=== PATIENT | female | born 1990 | race Caucasian/White ===

== ENCOUNTER 2016-09-26 11:49 | Emergency (ER) | payer MEDICAID ==
[2016-09-26 11:54] VITALS: RESP 16; TEMP 97.5
--- NOTE | 2016-09-26 13:36 | EDPHY ---
H & P Stated Complaint: right lower arm pain x1 day, concerned for dvt has hx of same - Personal History LMP (Females 10-55): 8-14 Days Ago Current Tetanus/Diphtheria Vaccine: Unsure Current Tetanus Diphtheria and Acellular Pertussis (TDAP): Unsure - Medical/Surgical History Hx Asthma: No Hx Chronic Respiratory Disease: No Hx Diabetes: No Hx Cardiac Disease: No Hx Renal Disease: No Hx Cirrhosis: No Hx Alcoholism: No Hx HIV/AIDS: No Hx Splenectomy or Spleen Trauma: No Other PMH: endometrioiss. dvt right arm 2013 - Social History Smoking Status: Never smoked Time Seen by Provider: 09/26/16 13:36 HPI/ROS: CHIEF COMPLAINT: [right forearm pain] HISTORY OF PRESENT ILLNESS: 26-year-old female presents complaining of right forearm fullness and tenderness that started yesterday. Patient denies trauma, no numbness tingling or weakness in this arm, no chest pain or shortness of breath. Patient is concerned as she reports a DVT in this right arm in 2013 after a PICC line removal. The patient reports she was hospitalized for 3 days , given shots in her abdomen and states she does not think she was sent home on any anticoagulants. No recent travel. Patient does not smoke cigarettes. She does not take control pills. REVIEW OF SYSTEMS: A comprehensive 10 point review of systems is otherwise negative aside from elements mentioned in the history of present illness. (Amy Alonso) - Physical Exam Exam: GEN: Awake, alert, oriented, no acute distress RESP: Lungs clear to auscultation Cardiac: Normal rate and rhythm MSK: Right forearm with no swelling, no erythema, mild tenderness to palpation over antecubital fossa, full range of motion, 2+ radial pulses sensation intact to light touch SKIN: No break in skin (Amy Alonso) Constitutional: Initial Vital Signs Temperature (C) 36.4 C 09/26/16 11:52 Heart Rate 68 09/26/16 11:52 Respiratory Rate 16 09/26/16 11:52 Blood Pressure 96/54 L 09/26/16 11:52 O2 Sat (%) 99 09/26/16 11:52 O2 Delivery Mode Room Air Allergies/Adverse Reactions: No Known Allergies Allergy (Unverified 09/26/16 11:51) Home Medications: Medication Instructions Recorded Enoxaparin [Lovenox 60 MG (*)] 50 mg SQ 1000,2200 #6 syr 09/26/16 Warfarin Sodium [Coumadin 5MG (*)] 5 mg PO DAILY #10 tab 09/26/16 Medical Decision Making - Diagnostics Imaging: Right upper extremity ultrasound- Impression: Linear filling defect in the right subclavian vein, which could be related to sequela of the patient's previous DVT, although acute DVT is a less likely possibility. Findings discussed with Amy Alonso NP, today at 1507 hours. Dictated By: Jus Varela MD (Amy Alonso) ED Course/Re-evaluation: The patient was evaluated and managed by the physician's assistant technician. My cosignature indicates that I reviewed the chart and I agree with the findings and plan of care as documented. I am the secondary supervising physician. ( Janny Pereyra) 4pm-I spoke with Dr. Jadiel Kenney, the patient's primary care physician who agrees to follow up with her in office next week for repeat INR. Patient was given Lovenox teaching in the emergency department and started on Coumadin. She is given a prescription for a 3 day course of Lovenox and a 10 day course of Coumadin. She agrees return for any chest pain, shortness of breath, numbness, tingling, weakness in this arm or discoloration or any other questions or concerns. (Amy Alonso) Differential Diagnosis: Diagnosis considered but not limited to DVT, muscle strain, fracture (Amy Alonso) - Data Points Laboratory Results: Laboratory Results 09/26/16 15:35 09/26/16 15:35 09/26/16 15:35 WBC 7.49 10^3/uL (3.80-9.50) RBC 4.05 L 10^6/uL (4.18-5.33) Hgb 12.7 g/dL (12.6-16.3) Hct 36.9 L % (38.0-47.0) MCV 91.1 fL (81.5-99.8) MCH 31.4 pg (27.9-34.1) MCHC 34.4 g/dL (32.4-36.7) RDW 11.8 % (11.5-15.2) Plt Count 237 10^3/uL (150-400) MPV 10.3 fL (8.7-11.7) Neut % (Auto) 56.5 % (39.3-74.2) Lymph % (Auto) 33.6 % (15.0-45.0) Kinney % (Auto) 6.0 % (4.5-13.0) Eos % (Auto) 3.1 % (0.6-7.6) Baso % (Auto) 0.5 % (0.3-1.7) Nucleat RBC Rel Count 0.0 % (0.0-0.2) Absolute Neuts (auto) 4.23 10^3/uL (1.70-6.50) Absolute Lymphs (auto) 2.52 10^3/uL (1.00-3.00) Absolute Monos (auto) 0.45 10^3/uL (0.30-0.80) Absolute Eos (auto) 0.23 10^3/uL (0.03-0.40) Absolute Basos (auto) 0.04 10^3/uL (0.02-0.10) Absolute Nucleated RBC 0.00 10^3/uL (0-0.01) Immature Gran % 0.3 % (0.0-1.1) Immature Gran # 0.02 10^3/uL (0.00-0.10) PT 14.2 SEC (12.0-15.0) INR 1.11 (0.83-1.16) Sodium 140 mEq/L (134-144) Potassium 4.4 mEq/L (3.5-5.2) Chloride 106 mEq/L (97-110) Carbon Dioxide 24 mEq/l (22-31) Anion Gap 10 mEq/L (8-16) BUN 14 mg/dL (7-23) Creatinine 0.7 mg/dL (0.6-1.0) Estimated GFR > 60 Glucose 94 mg/dL (70-100) Calcium 9.2 mg/dL (8.5-10.4) Beta HCG, Qual NEGATIVE Departure - Departure Disposition: Home, Routine, Self-Care Clinical Impression: DVT (deep venous thrombosis) Qualifiers: DVT location: upper extremity Affected thrombotic vein of extremity: unspecified vein of extremity Laterality: right Chronicity: acute Qualifier Code : (I82.621) Acute embolism and thrombosis of deep veins of right upper extremity Condition: Good Instructions: Deep Venous Thrombosis (ED) Additional Instructions: Use 50 mg of Lovenox twice daily in your abdomen for the next 3 days, take 5 mg of Coumadin once a day. Do not take any other nonsteroidal anti-inflammatories such as ibuprofen. Follow up with Dr. Kenney on on Wednesday or Wednesday. Call Wednesday to schedule this appointment. Return to the emergency department for any chest pain, shortness of breath, numbness to your arm, any other questions or concerns. Referrals: Jadiel Kenney DO [Primary Care Provider] - As per Instructions Prescriptions: Warfarin Sodium [Coumadin 5MG (*)] 5 mg PO DAILY #10 tab Enoxaparin [Lovenox 60 MG (*)] 50 mg SQ 1000,2200 #6 syr
--- NOTE | 2016-09-26 15:10 | US ---
Right Upper Extremity Ultrasound with Duplex Doppler History: 26-year-old with reported history of right upper extremity DVT in 2014 after PIC line insert ion. Pain and fullness since yesterday. Comparison: None available. Technique: The veins of the right neck and upper extremity are assessed with grayscale and Doppler ul trasound with compression of accessible vein segments. Findings: There is a subtle linear filling defect in the right subclavian vein. The right internal ju gular, subclavian, axillary, cephalic, basilic, and paired brachial veins are otherwise patent, with normal color Doppler appearance and waveforms. Accessible vein segments are compressible. Impression: Linear filling defect in the right subclavian vein, which could be related to sequela of the patient's previous DVT, although acute DVT is a less likely possibility. Findings discussed with Amy Alonso NP, today at 1507 hours.
[2016-09-26 15:48] LABS: % IMMATURE GRANULYOCYTES 0.3 % (0.0-1.1); ABSOLUTE IMMATURE GRANULOCYTES 0.02 10^3/uL (0.00-0.10); ADD DIFF? NO; ADD MORPH? NO; ADD SCAN? NO; ATYPICAL LYMPHOCYTE FLAG 10 (0-99); FRAGMENT RBC FLAG 0 (0-99); HEMATOCRIT 36.9 % (38.0-47.0); HEMOGLOBIN 12.7 g/dL (12.6-16.3); LEFT SHIFT FLG 0 (0-99); LIPEMIA HEMOLYSIS FLAG 90 (0-99); MEAN CELL HEMOGLOBIN 31.4 pg (27.9-34.1); MEAN CELL HEMOGLOBIN CONCENTR. 34.4 g/dL (32.4-36.7); MEAN CELL VOLUME 91.1 fL (81.5-99.8); MEAN PLATELET VOLUME 10.3 fL (8.7-11.7); PLATELET CLUMPS FLAG 0 (0-99); PLATELET COUNT 237 10^3/uL (150-400); RED BLOOD CELL COUNT 4.05 10^6/uL (4.18-5.33); RED CELL DISTRIBUTION WIDTH 11.8 % (11.5-15.2)
[2016-09-26 15:57] LABS: INR 1.11 (0.83-1.16); PROTIME(PATIENT) 14.2 SEC (12.0-15.0)
[2016-09-26] MEDS ORDERED: ENOXAPARIN 60 MG/0.6 ML SYR SC ONE (16:04)
[2016-09-26] MEDS ORDERED: WARFARIN SODIUM 5 MG TAB PO ONE (16:04)
[2016-09-26 16:27] LABS: ANION GAP 10 mEq/L (8-16); CALCIUM 9.2 mg/dL (8.5-10.4); CARBON DIOXIDE 24 mEq/l (22-31); CHLORIDE 106 mEq/L (97-110); CREATININE 0.7 mg/dL (0.6-1.0); GLOMERULAR FILTRATION RATE > 60; GLUCOSE 94 mg/dL (70-100); POTASSIUM 4.4 mEq/L (3.5-5.2); SODIUM 140 mEq/L (134-144)
[2016-09-26 17:20] VITALS: BP 100/61; PULSE 67; O2SAT 96
== END 2016-09-26 17:51 | disposition home or self-care (01) ==
DX: I82.621 Acute embolism and thrombosis of deep veins of right upper extremity (principal); Z79.01 Long term (current) use of anticoagulants
CPT/HCPCS: J1650

== ENCOUNTER 2016-10-22 15:38 | Emergency (ER) | payer MEDICAID ==
--- NOTE | 2016-10-22 15:48 | EDPHY ---
H & P Time Seen by Provider: 10/22/16 15:48 HPI/ROS: CHIEF COMPLAINT: Right side pain for 2 days HISTORY OF PRESENT ILLNESS: This 26-year-old woman has a history of endometriosis and also has history of 2 right upper extremity DVTs. The 1st 1 was in 2013 when she had a PICC line for intractable migraines, the 2nd 1 was diagnosed in September and she is currently on Lovenox. Over the past 2 days she has had pain in her right flank which she describes it is basically lower chest and upper abdomen on the side which does not radiate and is not associated with shortness of breath vomiting diarrhea or urinary symptoms. No recent fall injury or trauma. Symptoms moderate in nature. REVIEW OF SYSTEMS: Eye: no change in vision ENT: no sore throat Cardiac: no chest pain or syncope Pulmonary: no cough or SOB Abdomen: no vomiting, diarrhea, abdominal pain Musculoskeletal: no back pain Skin: no rash Neuro: no headache Constitutional: no fever : no urinary symptoms A comprehensive 10 point review of systems is otherwise negative aside from elements mentioned in the history of present illness. PAST MEDICAL HISTORY: Migraine headaches, 2 right upper extremity DVTs, laparoscopy for endometriosis. Social history: No alcohol today, no drug use General Appearance: Alert and conversant, cooperative. Eyes: No scleral icterus. ENT, Mouth: Normal mucous membranes. Respiratory: Normal respiratory effort, breath sounds equal, lungs are clear to auscultation. Cardiovascular: Regular rate and rhythm. Gastrointestinal: Abdomen is soft and non tender. No Heredia sign or right upper quadrant tenderness. Neurological: Alert and oriented x3. Normally conversant. Face symmetric, normal movement and sensation in all extremities. Skin: Warm and dry, no rashes. No zoster or redness. Musculoskeletal: No peripheral edema and no joint swelling. No midline spinal tenderness. Psychiatric: Not agitated. Emergency Department course/MDM: Discussed with Pharmacy at 6:52 p.m. who says that about 6% of people on Lovenox can have elevation of liver function test. 1900: Mekhi Gallo will follow up with the patient tomorrow. Certainly possible that her slight elevations in liver function tests are causing her pain and she will discuss whether to change her anticoagulation in the office tomorrow at her primary care practice. Patient declined pain medication in the emergency department. Smoking Status: Never smoked Constitutional: Initial Vital Signs Temperature (C) 36.8 C 10/22/16 15:40 Heart Rate 82 10/22/16 15:40 Respiratory Rate 16 10/22/16 15:40 Blood Pressure 119/76 10/22/16 15:40 O2 Sat (%) 94 10/22/16 15:40 O2 Delivery Mode Room Air Allergies/Adverse Reactions: No Known Allergies Allergy (Unverified 09/26/16 11:51) Home Medications: Medication Instructions Recorded Enoxaparin [Lovenox 60 MG (*)] 50 mg SQ 1000,2200 #6 syr 09/26/16 Medical Decision Making - Diagnostics Imaging: CT reviewed by myself and with Dr. Garnica at 5:30 p.m. shows no pulmonary embolism, abdomen shows no renal colic or liver abnormality or other reason for right upper quadrant pain. Right upper quadrant ultrasound per radiologist's not show cholecystitis or other acute abnormality. Differential Diagnosis: Differential considered including but not limited to pulmonary embolism, gallbladder disease, renal colic, hepatitis, pancreatitis, hematoma. - Data Points Laboratory Results: Laboratory Results 10/22/16 15:55 10/22/16 15:55 10/22/16 10/22/16 10/22/16 15:55 15:55 15:55 WBC 8.25 10^3/uL 10^3/uL (3.80-9.50) RBC 4.48 10^6/uL 10^6/uL (4.18-5.33) Hgb 14.5 g/dL g/dL (12.6-16.3) Hct 41.0 % % (38.0-47.0) MCV 91.5 fL fL (81.5-99.8) MCH 32.4 pg pg (27.9-34.1) MCHC 35.4 g/dL g/dL (32.4-36.7) RDW 11.8 % % (11.5-15.2) Plt Count 302 10^3/uL 10^3/uL (150-400) MPV 10.2 fL fL (8.7-11.7) Neut % (Auto) 63.8 % % (39.3-74.2) Lymph % (Auto) 28.1 % % (15.0-45.0) Caroline % (Auto) 6.3 % % (4.5-13.0) Eos % (Auto) 1.2 % % (0.6-7.6) Baso % (Auto) 0.5 % % (0.3-1.7) Nucleat RBC Rel Count 0.0 % % (0.0-0.2) Absolute Neuts (auto) 5.26 10^3/uL 10^3/uL (1.70-6.50) Absolute Lymphs (auto) 2.32 10^3/uL 10^3/uL (1.00-3.00) Absolute Monos (auto) 0.52 10^3/uL 10^3/uL (0.30-0.80) Absolute Eos (auto) 0.10 10^3/uL 10^3/uL (0.03-0.40) Absolute Basos (auto) 0.04 10^3/uL 10^3/uL (0.02-0.10) Absolute Nucleated RBC 0.00 10^3/uL 10^3/uL (0-0.01) Immature Gran % 0.1 % % (0.0-1.1) Immature Gran # 0.01 10^3/uL 10^3/uL (0.00-0.10) Sodium 141 mEq/L mEq/L (134-144) Potassium 4.2 mEq/L mEq/L (3.5-5.2) Chloride 107 mEq/L mEq/L (97-110) Carbon Dioxide 23 mEq/l mEq/l (22-31) Anion Gap 11 mEq/L mEq/L (8-16) BUN 17 mg/dL mg/dL (7-23) Creatinine 0.6 mg/dL mg/dL (0.6-1.0) Estimated GFR > 60 Glucose 81 mg/dL mg/dL (70-100) Calcium 10.1 mg/dL mg/dL (8.5-10.4) Total Bilirubin 0.8 mg/dL mg/dL (0.1-1.4) Conjugated Bilirubin 0.4 mg/dL mg/dL (0.0-0.5) Unconjugated Bilirubin 0.4 mg/dL mg/dL (0.0-1.1) AST 68 IU/L H IU/L (14-46) ALT 124 IU/L H IU/L (9-52) Alkaline Phosphatase 58 IU/L IU/L (38-126) Total Protein 8.2 g/dL g/dL (6.3-8.2) Albumin 5.0 g/dL g/dL (3.5-5.0) Lipase 186.0 IU/L IU/L (23-300) Beta HCG, Qual NEGATIVE Medications Given: Discontinued Medications Ondansetron HCl (Zofran) 4 mg IVP EDNOW ONE Stop: 10/22/16 17:28 Last Admin: 10/22/16 17:30 Dose: 4 mg Departure - Departure Disposition: Home, Routine, Self-Care Clinical Impression: Acute flank pain, Abnormal liver function tests Condition: Good Instructions: Flank Pain (ED) Referrals: Milka Gallo MD [Primary Care Provider] - 1 day without fail
[2016-10-22 15:50] VITALS: RESP 16; TEMP 98.2
[2016-10-22 16:13] LABS: % IMMATURE GRANULYOCYTES 0.1 % (0.0-1.1); ABSOLUTE IMMATURE GRANULOCYTES 0.01 10^3/uL (0.00-0.10); ADD DIFF? NO; ADD MORPH? NO; ADD SCAN? NO; ATYPICAL LYMPHOCYTE FLAG 10 (0-99); FRAGMENT RBC FLAG 0 (0-99); HEMOGLOBIN 14.5 g/dL (12.6-16.3); LEFT SHIFT FLG 0 (0-99); LIPEMIA HEMOLYSIS FLAG 90 (0-99); MEAN CELL HEMOGLOBIN 32.4 pg (27.9-34.1); MEAN CELL HEMOGLOBIN CONCENTR. 35.4 g/dL (32.4-36.7); MEAN CELL VOLUME 91.5 fL (81.5-99.8); MEAN PLATELET VOLUME 10.2 fL (8.7-11.7); PLATELET CLUMPS FLAG 10 (0-99); PLATELET COUNT 302 10^3/uL (150-400); RED BLOOD CELL COUNT 4.48 10^6/uL (4.18-5.33); RED CELL DISTRIBUTION WIDTH 11.8 % (11.5-15.2)
[2016-10-22 16:24] LABS: ALANINE AMINOTRANSFERASE 124 IU/L (9-52); ALKALINE PHOSPHATASE 58 IU/L (38-126); ANION GAP 11 mEq/L (8-16); ASPARTATE AMINOTRANSFERASE 68 IU/L (14-46); BILIRUBIN,TOTAL 0.8 mg/dL (0.1-1.4); BILIRUBIN-CONJUGATED 0.4 mg/dL (0.0-0.5); BILIRUBIN-UNCONJUGATED 0.4 mg/dL (0.0-1.1); CALCIUM 10.1 mg/dL (8.5-10.4); CARBON DIOXIDE 23 mEq/l (22-31); CHLORIDE 107 mEq/L (97-110); CREATININE 0.6 mg/dL (0.6-1.0); GLOMERULAR FILTRATION RATE > 60; GLUCOSE 81 mg/dL (70-100); POTASSIUM 4.2 mEq/L (3.5-5.2); SODIUM 141 mEq/L (134-144); TOTAL PROTEIN 8.2 g/dL (6.3-8.2)
[2016-10-22] MEDS ORDERED: IOPAMIDOL (ISOVUE 370) 100 ML BTL IV ONE (16:41)
[2016-10-22] MEDS ORDERED: ONDANSETRON 4 MG/2 ML VIAL ONE (17:24)
[2016-10-22] MEDS ORDERED: ONDANSETRON 4 MG/2 ML VIAL IVP ONE (17:27)
[2016-10-22 19:17] VITALS: BP 99/63; PULSE 70; O2SAT 96
== END 2016-10-22 19:22 | disposition home or self-care (01) ==
DX: R94.5 Abnormal results of liver function studies (principal); R10.9 Unspecified abdominal pain
CPT/HCPCS: 96374; J2405; Q9967

== ENCOUNTER 2016-11-12 12:00 | Day surgery (SDC) | payer MEDICAID ==
[2016-11-12] MEDS ORDERED: MIDAZOLAM 2 MG/2 ML VIAL ONE (13:50)
[2016-11-12] MEDS ORDERED: fentaNYL 100 MCG/2 ML INJ ONE (13:50)
[2016-11-12] MEDS ORDERED: IOPAMIDOL (ISOVUE-300) 100 ML BTL IV ONE (14:14)
== END 2016-11-12 14:40 | disposition home or self-care (01) ==
LOC: FIMAGING 12:00
PROVIDERS: ATTEND Radiology Diagnostic Radiology
PROC: 05JY3ZZ Inspection of Upper Vein, Percutaneous Approach (ICD-10-PCS; principal; 2016-11-12 14:20)
PROC: B54NZZA Ultrasonography of Left Upper Extremity Veins, Guidance (ICD-10-PCS; principal; 2016-11-12 14:20)
DX: Z03.89 Encounter for observation for other suspected diseases and conditions ruled out (principal); Z86.718 Personal history of other venous thrombosis and embolism
CPT/HCPCS: 36005; 75820; 99152; C1769; J2250; J3010; Q9967

== ENCOUNTER → 2016-12-02 | Outpatient (CLI) | payer MEDICAID | LOC: FIMAGING 16:21 | PROVIDERS: ATTEND Radiology Diagnostic Radiology | DX: M79.601 Pain in right arm (principal) ==

== ENCOUNTER → 2017-01-13 | Outpatient (CLI) | payer MEDICAID | LOC: FIMAGING 14:29 | PROVIDERS: ATTEND Nurse Practitioner | DX: M79.605 Pain in left leg (principal); R22.42 Localized swelling, mass and lump, left lower limb; Z86.718 Personal history of other venous thrombosis and embolism ==

== ENCOUNTER → 2017-03-12 | Outpatient (CLI) | payer MEDICAID | LOC: FIMAGING 17:03 | PROVIDERS: ATTEND Internal Medicine Hematology & Oncology | DX: M79.89 Other specified soft tissue disorders (principal) | CPT/HCPCS: 86147-90 ==

== ENCOUNTER 2017-03-17 19:51 | Emergency (ER) | payer MEDICAID ==
[2017-03-17 20:01] VITALS: TEMP 98.8
[2017-03-17 20:23] LABS: % IMMATURE GRANULYOCYTES 0.3 % (0.0-1.1); ABSOLUTE IMMATURE GRANULOCYTES 0.02 10^3/uL (0.00-0.10); ADD DIFF? NO; ADD MORPH? NO; ADD SCAN? NO; ATYPICAL LYMPHOCYTE FLAG 20 (0-99); FRAGMENT RBC FLAG 0 (0-99); HEMATOCRIT 39.6 % (38.0-47.0); HEMOGLOBIN 13.8 g/dL (12.6-16.3); LEFT SHIFT FLG 0 (0-99); LIPEMIA HEMOLYSIS FLAG 90 (0-99); MEAN CELL HEMOGLOBIN 31.7 pg (27.9-34.1); MEAN CELL HEMOGLOBIN CONCENTR. 34.8 g/dL (32.4-36.7); MEAN CELL VOLUME 90.8 fL (81.5-99.8); MEAN PLATELET VOLUME 10.5 fL (8.7-11.7); PLATELET CLUMPS FLAG 10 (0-99); PLATELET COUNT 272 10^3/uL (150-400); RED BLOOD CELL COUNT 4.36 10^6/uL (4.18-5.33); RED CELL DISTRIBUTION WIDTH 12.4 % (11.5-15.2)
[2017-03-17 20:33] LABS: ANION GAP 16 mEq/L (8-16); CARBON DIOXIDE 19 mEq/l (22-31); CHLORIDE 107 mEq/L (97-110); CREATININE 0.7 mg/dL (0.6-1.0); GLOMERULAR FILTRATION RATE > 60; GLUCOSE 108 mg/dL (70-100); POTASSIUM 3.7 mEq/L (3.5-5.2); SODIUM 142 mEq/L (134-144)
[2017-03-17 20:44] LABS: TROPONIN I < 0.012 ng/mL (0-0.034)
--- NOTE | 2017-03-17 20:54 | EDPHY ---
HPI/HX/ROS/PE/MDM Narrative: CHIEF COMPLAINT: Dyspnea, right shoulder pain HPI: The patient is a 26 y/o female with a history of 2 prior DVTs complaining of right shoulder pain for the last 1.5 weeks and dyspnea onset 1.5 days ago. Her first right upper extremity DVT was thought to be related to a PICC line, but her second one was unprovoked. She has not experienced shortness of breath previously. She describes feeling "winded going up stairs or while talking on the phone." She denies no fever, cough, other pain, vomiting, diarrhea, or other symptoms. She had a normal right upper extremity ultrasound 03/12/17, 5 days ago. REVIEW OF SYSTEMS: Aside from elements discussed in the HPI, a comprehensive 10-point review of systems was reviewed and is negative. PMH: Migraines, endometriosis, ovarian cysts, 2 DVTs of upper right extremity SOCIAL HISTORY: Boyfriend at bedside. PHYSICAL EXAM: General:Patient is alert, in no acute distress. ENT:Eyes are normal to inspection. ENT inspection normal. Neck: Normal inspection. Full range of motion. Respiratory:No respiratory distress. Breath sounds normal bilaterally. Cardiovascular: Regular rate and rhythm. Strong peripheral pulses. Normal cap refill. Abdomen:The abdomen is nontender to palpation. There are no peritoneal signs. Back: Normal to inspection. No tenderness to palpation. Skin: Normal color. No rash. Warm and dry. Extremities: Normal appearance. Full range of motion. Neuro: Oriented x3. Normal motor function. Normal sensory function. ED Course: Plan for IV, labs including d-dimer, EKG, and chest x-ray. The 12 lead EKG was interpreted by myself. Sinus mechanism. See hard copy and/ or "tracemaster" electronic copy for interpretation. Reassessed patient and discussed negative work up. Recommended PCP follow up. Return precautions given. She is comfortable with this plan. MDM: This patient presents with dyspnea in the setting of previous DVTs. We performed an extensive evaluation including chest x-ray, D-dimer, troponin other labs, all of which are negative. The patient underwent an ultrasound of her right arm within the last week which was also negative. I had extensive discussion with her and her friend regarding risk PE with a negative D-dimer. I explained that this risk is not 0, particularly with her history of prior DVT , but she has no signs of tachycardia or hypoxia or pleuritic chest pain to suggest PE. Patient is already had numerous CTs scans including a CT scan of her chest within the last year, so I am concerned about her radiation dose. I did offer this test but she agrees that she would like to defer this test for now and return should her symptoms worsen. - Data Points Imaging Results: Imaging Impressions Chest X-Ray 03/17/17 20:24 Impression: Chest negative for acute cardiopulmonary abnormality with no source for chest pain identified. Imaging: Discussed imaging studies w/ bilingual call center representative Radiologist, I viewed and interpreted images myself Laboratory Results: Laboratory Results 03/17/17 20:10 03/17/17 20:10 03/17/17 03/17/17 03/17/17 20:10 20:10 20:10 WBC RBC Hgb Hct MCV MCH MCHC RDW Plt Count MPV Neut % (Auto) Lymph % (Auto) Banner % (Auto) Eos % (Auto) Baso % (Auto) Nucleat RBC Rel Count Absolute Neuts (auto) Absolute Lymphs (auto) Absolute Monos (auto) Absolute Eos (auto) Absolute Basos (auto) Absolute Nucleated RBC Immature Gran % Immature Gran # D-Dimer 0.29 ug/mLFEU ug/mLFEU (0.00-0.50) Sodium 142 mEq/L mEq/L (134-144) Potassium 3.7 mEq/L mEq/L (3.5-5.2) Chloride 107 mEq/L mEq/L (97-110) Carbon Dioxide 19 mEq/l L mEq/l (22-31) Anion Gap 16 mEq/L mEq/L (8-16) BUN 12 mg/dL mg/dL (7-23) Creatinine 0.7 mg/dL mg/dL (0.6-1.0) Estimated GFR > 60 Glucose 108 mg/dL H mg/dL (70-100) Calcium 10.0 mg/dL mg/dL (8.5-10.4) Troponin I < 0.012 ng/mL ng/mL (0-0.034) Beta HCG, Qual NEGATIVE 03/17/17 20:10 WBC 7.34 10^3/uL 10^3/uL (3.80-9.50) RBC 4.36 10^6/uL 10^6/uL (4.18-5.33) Hgb 13.8 g/dL g/dL (12.6-16.3) Hct 39.6 % % (38.0-47.0) MCV 90.8 fL fL (81.5-99.8) MCH 31.7 pg pg (27.9-34.1) MCHC 34.8 g/dL g/dL (32.4-36.7) RDW 12.4 % % (11.5-15.2) Plt Count 272 10^3/uL 10^3/uL (150-400) MPV 10.5 fL fL (8.7-11.7) Neut % (Auto) 56.4 % % (39.3-74.2) Lymph % (Auto) 34.2 % % (15.0-45.0) Banner % (Auto) 6.7 % % (4.5-13.0) Eos % (Auto) 1.9 % % (0.6-7.6) Baso % (Auto) 0.5 % % (0.3-1.7) Nucleat RBC Rel Count 0.0 % % (0.0-0.2) Absolute Neuts (auto) 4.14 10^3/uL 10^3/uL (1.70-6.50) Absolute Lymphs (auto) 2.51 10^3/uL 10^3/uL (1.00-3.00) Absolute Monos (auto) 0.49 10^3/uL 10^3/uL (0.30-0.80) Absolute Eos (auto) 0.14 10^3/uL 10^3/uL (0.03-0.40) Absolute Basos (auto) 0.04 10^3/uL 10^3/uL (0.02-0.10) Absolute Nucleated RBC 0.00 10^3/uL 10^3/uL (0-0.01) Immature Gran % 0.3 % % (0.0-1.1) Immature Gran # 0.02 10^3/uL 10^3/uL (0.00-0.10) D-Dimer Sodium Potassium Chloride Carbon Dioxide Anion Gap BUN Creatinine Estimated GFR Glucose Calcium Troponin I Beta HCG, Qual General Time Seen by Provider: 03/17/17 20:01 Initial Vital Signs: Initial Vital Signs Temperature (C) 37.1 C 03/17/17 19:58 Heart Rate 70 03/17/17 19:58 Respiratory Rate 16 03/17/17 19:58 Blood Pressure 112/67 03/17/17 19:58 O2 Sat (%) 97 03/17/17 19:58 O2 Delivery Mode Room Air Allergies/Adverse Reactions: No Known Allergies Allergy (Unverified 03/17/17 19:57) Departure - Departure Disposition: Home, Routine, Self-Care Clinical Impression: Right shoulder pain Qualifiers: Chronicity: acute Qualified Code(s): M25.511 - Pain in right shoulder Dyspnea Qualifiers: Dyspnea type: dyspnea on exertion Qualified Code(s): R06.09 - Other forms of dyspnea Condition: Good Instructions: Dyspnea (ED), Shoulder Pain (ED) Additional Instructions: Follow up with your primary care provider for ongoing symptoms. Return to the ED for worsening of condition. Referrals: Milka Gallo MD [Primary Care Provider] - As per Instructions Report Scribed for: Jadiel Wagner Report Scribed by: Carolyn Patel Date of Report: 03/17/17 Time of Report: 20:07 Physician Review and Approval Statement: Portions of this note were transcribed by an ED scribe. I personally performed the history, physical exam, and medical decision making; and confirm the accuracy of the information in the transcribed note.
--- NOTE | 2017-03-17 21:08 | CPEKG ---
Heart Rate: 55 RR Interval: 1091 P-R Interval: 132 QRSD Interval: 82 QT Interval: 396 QTC Interval: 379 P Pacific: 64 QRS Pacific: 82 T Wave Pacific: 61 EKG Severity - NORMAL ECG - EKG Impression: SINUS RHYTHM EKG Impression: Agree with above Electronically Signed By: Kaveh Perdomo 19-Mar-2017 09:59:58
[2017-03-17 22:02] VITALS: BP 106/64; PULSE 74; RESP 18; O2SAT 96
== END 2017-03-17 22:02 | disposition home or self-care (01) ==
DX: R06.09 Other forms of dyspnea (principal); M25.511 Pain in right shoulder

== ENCOUNTER → 2017-09-16 | Outpatient (CLI) | payer MEDICAID | LOC: FIMAGING 10:57 | PROVIDERS: ATTEND Nurse Practitioner | DX: M79.89 Other specified soft tissue disorders (principal) ==

== ENCOUNTER 2017-12-09 14:09 | Emergency (ER) | payer MEDICAID ==
--- NOTE | 2017-12-09 14:36 | EDPHY ---
H & P Time Seen by Provider: 12/09/17 14:20 HPI/ROS: CHIEF COMPLAINT: Headache and neck pain HISTORY OF PRESENT ILLNESS: This 27-year-old woman presents with right-sided neck pain and headache. She was seeing a chiropractor yesterday at 3:00 p.m. For headache which she had after minor head trauma in June. He had 2 episodes of turning and cracking her neck after which she developed a new headache which is bifrontal associated with a right lateral neck pain. Not thunderclap in onset or worst of life. Symptoms mild to moderate, a little bit worse with movement. Not associated with vertigo or syncope or weakness or numbness in extremities. Presents concerned about "damage to a vein"in her neck. REVIEW OF SYSTEMS: Eye: no change in vision, she is light sensitive ENT: no sore throat, a sensation of"vibrating in my ears"today with no loss in hearing or tenderness Cardiac: no chest pain or syncope Pulmonary: no cough or SOB Abdomen: no vomiting, diarrhea, abdominal pain Musculoskeletal: HPI Skin: no rash Neuro: HPI Constitutional: Stated she had a low-grade fever earlier today : no urinary symptoms, no dysuria or hematuria A comprehensive 10 point review of systems is otherwise negative aside from elements mentioned in the history of present illness. PAST MEDICAL HISTORY: includes endometriosis, fibromyalgia, asthma, chronic migraine headaches for which she had a PICC line in the past, DVT in her right arm in 2013 and 2017. Denies . Last menstrual period weeks ago Social history: Not currently a smoker, no drugs General Appearance: Alert and conversant, cooperative. Eyes: No scleral icterus. Pupils equal and reactive extraocular motion intact no nystagmus. ENT, Mouth: Normal mucous membranes. Normal tympanic membranes bilaterally. Respiratory: Normal respiratory effort, breath sounds equal, lungs are clear to auscultation. Cardiovascular: Regular rate and rhythm. Gastrointestinal: Abdomen is soft and non tender. Neurological: Alert, face symmetric, normal motor and sensory in extremities. Normal hhrsow-av-pups bilaterally, no pronator drift, fluent speech, ambulatory. Skin: Warm and dry, no rashes. Musculoskeletal: No peripheral edema. No external swelling visualized on the neck, full range of motion no meningeal signs. Psychiatric: Not agitated. Emergency Department course/MDM: Patient declined pain medication. She is just interested in making sure that this does not represent a serious medical or surgical condition. We discussed CT head and angiography of the neck is the most sensitive test, consented the patient. she asked about MRI but my understanding is that is less sensitive test. Results discussed with Dr. Quick at 1540, negative head CT and angiography; no dissection. Patient informed, ok for DC. 1846: discussed CT results and radiology recommendation for US followup of thyroid, by phone with patient. She had thyroid US in 2013 in [place]. Warned needs to compare, or repeat US, as per radiology recommendation to evaluate for serious causes incl/not limited to malignancy. States she understands and will get 6-12 month US followup, declined case management assistance in connecting with PCP to assist in doing this. Smoking Status: Former smoker Constitutional: Initial Vital Signs Temperature (C) 36.6 C 12/09/17 14:13 Heart Rate 86 12/09/17 14:13 Respiratory Rate 17 12/09/17 14:13 Blood Pressure 103/74 12/09/17 14:13 O2 Sat (%) 95 12/09/17 14:13 O2 Delivery Mode Room Air Allergies/Adverse Reactions: surgical tape Allergy (Uncoded 12/09/17 14:11) Home Medications: Medication Instructions Recorded Compound Pain Cream 12/09/17 Flexeril 10 MG (*) 12/09/17 Lometa 5/325 (*) 12/09/17 Zofran 12/09/17 Medical Decision Making - Diagnostics Imaging Results: Imaging Impressions Head CT 12/09/17 14:48 Impression: Normal. Results discussed with Dr. Hank Akers at 12/09/2017 15:41. Head CTA 12/09/17 14:48 Impression: 1. No evidence for stenosis or dissection in either carotid artery or vertebral artery. 2. Small subcentimeter hypodense lesions in the thyroid gland, bilateral. Recommend follow-up ultrasound in 6 months to 1 year. Measurement of carotid stenosis is based on the residual internal carotid diameter with [place] Symptomatic Carotid Endarterectomy Trial (NASCET) based stenosis levels. CT Angiography of the Brain Clinical Indications: Headache and right neck pain after chiropractic manipulation 24 hours ago. Technique: CT angiogram of the brain was performed with the uneventful intravenous administration of 100 mL Isovue-370 contrast. Multiplanar reconstructions including 3D reconstructions performed and evaluated on [employer] workstation in order to better evaluate the [place] vessels. Images were manipulated by the radiologist at the computer workstation. Dose reduction techniques were utilized. Findings: Major vessels of the [place] are adequately displayed, demonstrating no evidence of aneurysm, vascular malformation, flow-limiting stenosis, or occlusion. Bilateral cavernous internal carotid arteries and vertebrobasilar system demonstrates no evidence of flow-limiting stenosis, aneurysm, occlusion or dissection. Superior sagittal sinus, transverse sinuses, and major veins demonstrate no evidence of intraluminal thrombi. Normal variant anatomy with a patent right posterior communicating artery and hypoplastic right P1 segment, posterior cerebral artery. Impression: Negative CT angiogram of the brain. Results called and discussed with Dr. Hank Akers on 12/09/2017, 15:46. Neck CTA 12/09/17 14:48 Impression: 1. No evidence for stenosis or dissection in either carotid artery or vertebral artery. 2. Small subcentimeter hypodense lesions in the thyroid gland, bilateral. Recommend follow-up ultrasound in 6 months to 1 year. Measurement of carotid stenosis is based on the residual internal carotid diameter with [place] Symptomatic Carotid Endarterectomy Trial (NASCET) based stenosis levels. CT Angiography of the Brain Clinical Indications: Headache and right neck pain after chiropractic manipulation 24 hours ago. Technique: CT angiogram of the brain was performed with the uneventful intravenous administration of 100 mL Isovue-370 contrast. Multiplanar reconstructions including 3D reconstructions performed and evaluated on [place] workstation in order to better evaluate the [place] vessels. Images were manipulated by the radiologist at the computer workstation. Dose reduction techniques were utilized. Findings: Major vessels of the [place] are adequately displayed, demonstrating no evidence of aneurysm, vascular malformation, flow-limiting stenosis, or occlusion. Bilateral cavernous internal carotid arteries and vertebrobasilar system demonstrates no evidence of flow-limiting stenosis, aneurysm, occlusion or dissection. Superior sagittal sinus, transverse sinuses, and major veins demonstrate no evidence of intraluminal thrombi. Normal variant anatomy with a patent right posterior communicating artery and hypoplastic right P1 segment, posterior cerebral artery. Impression: Negative CT angiogram of the brain. Results called and discussed with Dr. Hank Akers on 12/09/2017, 15:46. Imaging: Discussed imaging studies w/ front desk team member Radiologist Differential Diagnosis: Differential considered including but not limited to neck strain, vertebral or carotid dissection, pinched nerve, spinal cord problem, SAH, meningitis - Data Points Laboratory Results: 12/09/17 14:46 POC Hgb 14.6 gm/dL gm/dL (12.6-16.3) POC Hct 43 % % (38-47) POC Sodium 142 mEq/L mEq/L (135-145) POC Potassium 4.0 mEq/L mEq/L (3.3-5.0) POC Chloride 106 mEq/L mEq/L (97-110) POC BUN 16 mg/dL mg/dL (7-23) POC Creatinine 0.6 mg/dL mg/dL (0.6-1.0) POC Glucose 96 mg/dL mg/dL (70-100) Medications Given: Discontinued Medications Sodium Chloride (Ns) 1,000 mls @ 3,000 mls/hr IV ONCE ONE Stop: 12/09/17 15:31 Last Admin: 12/09/17 15:12 Dose: 1,000 mls Ondansetron HCl (Zofran) 4 mg IVP EDNOW ONE Stop: 12/09/17 15:13 Last Admin: 12/09/17 15:13 Dose: 4 mg Point of Care Test Results: 12/09/17 14:46 POC Sodium 142 POC Potassium 4.0 POC Chloride 106 POC BUN 16 POC Creatinine 0.6 POC Glucose 96 Departure - Departure Disposition: Home, Routine, Self-Care Clinical Impression: Neck pain on right side Headache Qualifiers: Headache type: unspecified Headache chronicity pattern: acute headache Intractability: not intractable Qualified Code(s): R51 - Headache Condition: Good Instructions: Cervical Strain (ED), Acute Neck Pain (ED) Referrals: Abdoul Ang DO [Medical Doctor] - As per Instructions (neurology referral)
[2017-12-09] MEDS ORDERED: IOPAMIDOL (ISOVUE 370) 100 ML BTL IV ONE (14:55)
[2017-12-09] MEDS ORDERED: ONDANSETRON 4 MG/2 ML VIAL ONE (15:10)
[2017-12-09] MEDS ORDERED: ONDANSETRON 4 MG/2 ML VIAL IVP ONE (15:12)
[2017-12-09] MEDS ORDERED: NS 1,000 ML IV ONE (15:12)
[2017-12-09 15:52] VITALS: BP 105/65
== END 2017-12-09 15:52 | disposition home or self-care (01) ==
DX: R51 Headache (principal); M54.2 Cervicalgia; J45.909 Unspecified asthma, uncomplicated; Z87.891 Personal history of nicotine dependence
CPT/HCPCS: 82947-QW; 96374; J2405; Q9967